=== PATIENT | male | born 1985 | race Two or more races ===

== ENCOUNTER 2017-06-07 14:03 | Inpatient (IN) | payer MEDICAID, OTHER ==
[~2017-06-07] VITALS: Ht 188 cm; Wt 115.2 kg
[~2017-06-07 14:03] MED LIST: GEMF600T3 OR; LISI10TA6 OR; OMEG120017 OR
[2017-06-07 15:48] LABS: White Blood Cell 6.7 10^3/uL (4.4-10.8)
[2017-06-07 15:49] LABS: Basophils # (auto) 0.1 uL; Basophils % (auto) 1.1 % (0.0-2.0); Eosinophils # (auto) 0.1 uL; Eosinophils % (auto) 1.1 % (0.0-7.0); Lymphocytes # (auto) 1.5 uL; Lymphocytes % (auto) 23.1 % (10.0-50.0); Monocytes # (auto) 0.3 uL; Neutrophils # (auto) 4.7 uL; Neutrophils % (auto) 70.7 % (37.0-80.0)
[2017-06-07 15:50] LABS: Red Blood Cells 5.46 10^6/uL (4.5-5.90)
[2017-06-07 15:51] LABS: Hematocrit 43.2 % (41.0-53.0); Hemoglobin 14.6 g/dL (13.5-17.5); Mean Corpuscular Hemoglobin 26.7 pg (28.0-32.0); Mean Corpuscular Hgb Conc. 33.7 g/dL (32.0-36.0); Mean Corpuscular Volume 79.2 fL (80.0-100.0); Platelet Count (auto) 238 10^3/uL (140-450); Red Cell Distribution Width 14.1 % (11.8-14.3)
[2017-06-07 16:37] LABS: Sodium 136 mmol/L (136-145)
[2017-06-07 16:38] LABS: Anion Gap 7 (5-15); Carbon Dioxide 25 mmol/L (21-32); Chloride 104 mmol/L (98-107); Glucose 145 mg/dL (74-106)
[2017-06-07 16:39] LABS: BUN/Creatinine Ratio 9.6; Blood Urea Nitrogen 11 mg/dL (7-18); GFR African American 95 mL/min; GFR Non-African American 79 mL/min
[2017-06-07 16:41] LABS: Alkaline Phosphatase 59 U/L (45-117)
[2017-06-07 16:42] LABS: Alanine Aminotransferase 31 U/L (16-61); Aspartate Aminotransferase 76 U/L (15-37)
[2017-06-07 16:43] LABS: Calcium 9.1 mg/dL (8.5-10.1)
[2017-06-07 16:44] LABS: Bilirubin, Total 0.4 mg/dL (0.2-1.0); Total Protein 7.1 g/dL (6.4-8.2)
[2017-06-07 16:45] LABS: Albumin 4.1 g/dL (3.4-5.0); Magnesium 2.6 mg/dL (1.6-2.6)
[2017-06-07 16:51] LABS: Potassium 5.6 mmol/L (3.5-5.1)
[2017-06-07] MEDS ORDERED: SODIUM CHLORIDE 0.9% 1,000 ML IV ONE (17:00)
[2017-06-07 19:44] LABS: HDL Cholesterol 13 mg/dL (40-59); Triglycerides 1812 mg/dL (< 150)
[2017-06-07 20:13] LABS: Urine Bacteria NONE SEEN /hpf (None Seen); Urine Blood Negative /uL (Negative); Urine Specific Gravity 1.025 (1.001-1.035); Urine WBC <1 /hpf (0 - 3)
[2017-06-08] MEDS ORDERED: ONDANSETRON HCL 4 MG/2 ML VIAL IV PRN (01:00)
[2017-06-08] MEDS ORDERED: MORPHINE SULFATE 8mg/ml INJ SDV IV PRN (01:00)
[2017-06-08] MEDS ORDERED: TEMAZEPAM 15 MG CAP PO PRN (01:00)
[2017-06-08] MEDS ORDERED: NITROGLYCERIN 0.4 MG SL TAB SL PRN (01:00)
[2017-06-08] MEDS ORDERED: ACETAMINOPHEN 325 MG TAB PO PRN (01:00)
[2017-06-08] MEDS ORDERED: Niacin SR 500mg TAB PO ONE (01:15)
[2017-06-08] MEDS: LISINOPRIL 10 MG TAB PO SCH (09:55)
[2017-06-08] MEDS: FISH OIL 1200 MG CAPSULE PO SCH ×2 (09:55→22:00)
[2017-06-08] MEDS ORDERED: METOPROLOL SUCCINATE XL 50 MG TAB PO ONE (10:00)
[2017-06-08] MEDS: ASPirin 81 mg TAB PO SCH (10:19)
[2017-06-08] MEDS: ENOXAPARIN SOD 40 MG/0.4 ML SYRINGE SC SCH (10:20)
[2017-06-08] MEDS: GEMFIBROZIL 600 MG TAB PO SCH ×2 (10:20→22:28)
[2017-06-08] MEDS: FAMOTIDINE 20 MG TAB PO SCH ×2 (10:20→22:29)
[2017-06-08 17:00] VITALS: BP 155/104
[2017-06-08 22:00] VITALS: BP 160/103
[2017-06-08] MEDS: Niacin SR 500mg TAB PO SCH (22:29)
[2017-06-08] MEDS ORDERED: cloNIDine HCL 0.1 MG TAB PO PRN (22:30)
[2017-06-08] MEDS: HYDROcodone-ACET 5/325MG TAB PO PRN (22:35)
[2017-06-09 05:00] VITALS: BP 144/86
[2017-06-09 07:28] LABS: Basophils # (auto) 0 uL; Basophils % (auto) 0.5 % (0.0-2.0); Eosinophils # (auto) 0.1 uL; Eosinophils % (auto) 1.7 % (0.0-7.0); Hemoglobin 15.3 g/dL (13.5-17.5); Lymphocytes # (auto) 1.3 uL; Lymphocytes % (auto) 24.8 % (10.0-50.0); Mean Corpuscular Hemoglobin 27.1 pg (28.0-32.0); Mean Corpuscular Hgb Conc. 34.1 g/dL (32.0-36.0); Mean Corpuscular Volume 79.5 fL (80.0-100.0); Monocytes # (auto) 0.4 uL; Monocytes % (auto) 6.9 % (0.0-12.0); Neutrophils # (auto) 3.4 uL; Neutrophils % (auto) 66.1 % (37.0-80.0); Nucleated Red Blood Cells % 0.2 %; Platelet Count (auto) 166 10^3/uL (140-450); Red Blood Cells 5.65 10^6/uL (4.5-5.90); White Blood Cell 5.2 10^3/uL (4.4-10.8)
[2017-06-09 07:45] LABS: BUN/Creatinine Ratio 10.9; Bilirubin, Total 1.7 mg/dL (0.2-1.0); Calcium 8.8 mg/dL (8.5-10.1); Magnesium 2.8 mg/dL (1.6-2.6); Potassium 4.2 mmol/L (3.5-5.1); Total Protein 7.6 g/dL (6.4-8.2)
[2017-06-09 08:55] VITALS: BP 128/89
[2017-06-09] MEDS: FAMOTIDINE 20 MG TAB PO SCH ×2 (09:55→21:22)
[2017-06-09] MEDS: GEMFIBROZIL 600 MG TAB PO SCH ×2 (09:55→21:20)
[2017-06-09] MEDS: ASPirin 81 mg TAB PO SCH (09:55)
[2017-06-09] MEDS: ENOXAPARIN SOD 40 MG/0.4 ML SYRINGE SC SCH (09:56)
[2017-06-09] MEDS: LISINOPRIL 10 MG TAB PO SCH (09:56)
[2017-06-09] MEDS: FISH OIL 1200 MG CAPSULE PO SCH ×2 (10:00→21:47)
[2017-06-09] MEDS: HYDROcodone-ACET 5/325MG TAB PO PRN ×2 (15:17→21:20)
[2017-06-09 16:30] VITALS: BP 143/96
[2017-06-09] MEDS: METOPROLOL TARTRATE 25 MG TAB PO SCH (21:21)
[2017-06-09] MEDS: Niacin SR 500mg TAB PO SCH (21:21)
[2017-06-09 23:06] VITALS: BP 151/106
[2017-06-10] MEDS: HYDROcodone-ACET 5/325MG TAB PO PRN ×3 (05:23→20:07)
[2017-06-10 05:58] VITALS: BP 116/78
[2017-06-10 06:53] LABS: BUN/Creatinine Ratio 17.6; Calcium 9.1 mg/dL (8.5-10.1)
[2017-06-10 07:01] LABS: Potassium 3.8 mmol/L (3.5-5.1)
[2017-06-10] MEDS: LISINOPRIL 10 MG TAB PO SCH (07:41)
[2017-06-10] MEDS: FAMOTIDINE 20 MG TAB PO SCH ×2 (07:41→22:00)
[2017-06-10] MEDS: GEMFIBROZIL 600 MG TAB PO SCH ×2 (07:41→22:00)
[2017-06-10] MEDS: ASPirin 81 mg TAB PO SCH (07:41)
[2017-06-10] MEDS: ENOXAPARIN SOD 40 MG/0.4 ML SYRINGE SC SCH (07:42)
[2017-06-10 09:00] VITALS: BP 160/90
[2017-06-10] MEDS: METOPROLOL TARTRATE 25 MG TAB PO SCH (09:29)
[2017-06-10] MEDS: FISH OIL 1200 MG CAPSULE PO SCH ×2 (09:30→22:00)
[2017-06-10] MEDS ORDERED: METOPROLOL TARTRATE 25 MG TAB PO ONE (10:15)
[2017-06-10 13:00] VITALS: BP 129/91
[2017-06-10 16:19] VITALS: BP 142/83
[2017-06-10 21:30] VITALS: BP 138/83
[2017-06-10] MEDS: Niacin SR 500mg TAB PO SCH (22:00)
[2017-06-10] MEDS: METOPROLOL TARTRATE 50 MG TAB PO SCH (22:00)
[2017-06-10] MEDS ORDERED: METOPROLOL TARTRATE 25 MG TAB PO SCH (22:00)
[2017-06-11 04:58] VITALS: BP 113/77
[2017-06-11] MEDS: HYDROcodone-ACET 5/325MG TAB PO PRN (07:31)
[2017-06-11 08:24] VITALS: BP 121/67
[2017-06-11] MEDS: METOPROLOL TARTRATE 50 MG TAB PO SCH (09:16)
[2017-06-11] MEDS: ASPirin 81 mg TAB PO SCH (09:16)
[2017-06-11] MEDS: GEMFIBROZIL 600 MG TAB PO SCH (09:16)
[2017-06-11] MEDS: LISINOPRIL 10 MG TAB PO SCH (09:17)
[2017-06-11] MEDS: FAMOTIDINE 20 MG TAB PO SCH (09:17)
[2017-06-11] MEDS: FISH OIL 1200 MG CAPSULE PO SCH (09:17)
[2017-06-11] MEDS: ENOXAPARIN SOD 40 MG/0.4 ML SYRINGE SC SCH (09:17)
== END 2017-06-11 11:27 | disposition home or self-care (01) | DRG 199 ==
LOC: ER 14:08 → TELE 14:09 → TELE-EAST 06-08 15:28
PROVIDERS: ADMIT Nurse Practitioner; ATTEND Internal Medicine
DX: I16.0 Hypertensive urgency (principal); E87.5 Hyperkalemia; I47.1 Supraventricular tachycardia; I10 Essential (primary) hypertension; I49.3 Ventricular premature depolarization; E78.5 Hyperlipidemia, unspecified; F12.90 Cannabis use, unspecified, uncomplicated; F17.210 Nicotine dependence, cigarettes, uncomplicated; F41.9 Anxiety disorder, unspecified; E78.1 Pure hyperglyceridemia; Z82.49 Family history of ischemic heart disease and other diseases of the circulatory system; Z83.3 Family history of diabetes mellitus; Z90.49 Acquired absence of other specified parts of digestive tract; Z91.19 Patient's noncompliance with other medical treatment and regimen
CPT/HCPCS: 36415; 71046; 74176; 80048; 80053; 80061; 81001; 83735; 84132; 84443; 84484; 85025; 93005; 93306; 94761; 96360; 96372

== ENCOUNTER 2018-04-17 15:47 | Emergency (ER) | payer MEDICAID ==
[~2018-04-17] VITALS: Ht 188 cm; Wt 108.9 kg
[~2018-04-17 15:47] MED LIST changes: +FENO160T8 PO; -GEMF600T3 OR; -LISI10TA6 OR; +METO-158 PO; +NIAC500C3 OR
[2018-04-17] MEDS ORDERED: SODIUM CHLORIDE 0.9% 1,000 ML IVB ONE (16:13)
[2018-04-17] MEDS ORDERED: ADENOSINE 6 MG/2 ML INJ IV ONE (16:15)
[2018-04-17 16:30] VITALS: BP 164/100
[2018-04-17 16:30] LABS: Basophils # (auto) 0.1 uL; Eosinophils # (auto) 0.1 uL; Hemoglobin 17.1 g/dL (13.5-17.5); Lymphocytes # (auto) 2.2 uL; Lymphocytes % (auto) 26.1 % (10.0-50.0); Monocytes # (auto) 0.4 uL
[2018-04-17 16:31] LABS: Basophils % (auto) 0.9 % (0.0-2.0); Eosinophils % (auto) 1.3 % (0.0-7.0); Hematocrit 46.4 % (41.0-53.0); Mean Corpuscular Hgb Conc. 36.8 g/dL (32.0-36.0); Mean Corpuscular Volume 78.8 fL (80.0-100.0); Monocytes % (auto) 5.2 % (0.0-12.0); Neutrophils # (auto) 5.6 uL; Neutrophils % (auto) 66.5 % (37.0-80.0); Nucleated Red Blood Cells % 0.7 %; Platelet Count (auto) 224 10^3/uL (140-450); Red Blood Cells 5.89 10^6/uL (4.5-5.90); Red Cell Distribution Width 14.9 % (11.8-14.3); White Blood Cell 8.4 10^3/uL (4.4-10.8)
== END 2018-04-17 19:14 | disposition home or self-care (01) ==
LOC: ER 16:02
DX: I47.1 Supraventricular tachycardia (principal); E78.5 Hyperlipidemia, unspecified; I10 Essential (primary) hypertension; F12.10 Cannabis abuse, uncomplicated; Z90.49 Acquired absence of other specified parts of digestive tract; Z90.89 Acquired absence of other organs
CPT/HCPCS: 36415; 71045; 85025; 93005; 94761; 96361; 96374; 99284; J0153

== ENCOUNTER 2018-06-23 04:12 | Emergency (ER) | payer MEDICAID ==
[~2018-06-23] VITALS: Ht 188 cm; Wt 113.4 kg
[2018-06-23] MEDS ORDERED: SODIUM CHLORIDE 0.9% 1,000 ML IV ONE (04:34)
[2018-06-23] MEDS ORDERED: ONDANSETRON HCL 4 MG/2 ML VIAL IV ONE (04:45)
[2018-06-23] MEDS ORDERED: PROMETHAZINE W/CODEINE 5 ML ORAL SYRUP PO ONE (04:45)
[2018-06-23] MEDS ORDERED: KETOROLAC TROMETH 30 MG/ML 1ML VIAL IV ONE (04:45)
[2018-06-23 05:00] LABS: Basophils # (auto) 0 uL; Eosinophils # (auto) 0.1 uL; Hemoglobin 16.4 g/dL (13.5-17.5); Lymphocytes # (auto) 0.9 uL; Monocytes # (auto) 0.3 uL; White Blood Cell 5.3 10^3/uL (4.4-10.8)
[2018-06-23 05:04] LABS: Basophils % (auto) 0.5 % (0.0-2.0); Eosinophils % (auto) 1.3 % (0.0-7.0); Hematocrit 44.2 % (41.0-53.0); Lymphocytes % (auto) 16.5 % (10.0-50.0); Mean Corpuscular Hemoglobin 28.7 pg (28.0-32.0); Mean Corpuscular Volume 77.5 fL (80.0-100.0); Monocytes % (auto) 5.7 % (0.0-12.0); Nucleated Red Blood Cells % 0.8 %; Platelet Count (auto) 178 10^3/uL (140-450); Red Blood Cells 5.71 10^6/uL (4.5-5.90); Red Cell Distribution Width 13.7 % (11.8-14.3)
[2018-06-23 05:11] VITALS: BP 151/88
[2018-06-23 05:33] LABS: Albumin 4.1 g/dL (3.4-5.0); Potassium 4.1 mmol/L (3.5-5.1)
[2018-06-23 05:38] LABS: Bilirubin, Total 1.3 mg/dL (0.2-1.0)
[2018-06-23 06:09] LABS: Calcium 7.8 mg/dL (8.5-10.1); Total Protein 7.6 g/dL (6.4-8.2)
[2018-06-23 06:46] LABS: BUN/Creatinine Ratio 14.5
== END 2018-06-23 06:15 | disposition home or self-care (01) ==
LOC: ER 04:12
DX: J40 Bronchitis, not specified as acute or chronic (principal); I10 Essential (primary) hypertension; E78.5 Hyperlipidemia, unspecified; Z90.49 Acquired absence of other specified parts of digestive tract
CPT/HCPCS: 36415; 71045; 80053; 85025; 93005; 96361; 96374; 96375; 99284; J1885; J2405; J7030

== ENCOUNTER 2019-08-14 15:57 | Emergency (ER) | payer MEDICAID ==
[~2019-08-14] VITALS: Ht 188 cm; Wt 117.9 kg
[~2019-08-14 15:57] MED LIST changes: +ATOR1TAB PO; +HYDR50TA15 PO; +LISI-646 PO; +MAGN400T40 PO; -METO-158 PO; +METO-159 PO; -NIAC500C3 OR; -OMEG120017 OR
[2019-08-14] MEDS ORDERED: dilTIAZem 25 MG/5 ML VIAL IV ONE ×2 (16:12→16:15)
[2019-08-14 16:21] LABS: Basophils # (auto) 0.1 10 ^3/uL (0-0.2); Eosinophils # (auto) 0.1 10 ^3/uL (0-0.8); Red Cell Distribution Width 14.7 % (11.8-14.3)
[2019-08-14 16:23] LABS: Basophils % (auto) 0.7 % (0.0-2.0); Eosinophils % (auto) 0.8 % (0.0-7.0); Hematocrit 50.3 % (41.0-53.0); Lymphocytes % (auto) 21.7 % (10.0-50.0); Mean Corpuscular Hemoglobin 27.1 pg (28.0-32.0); Mean Corpuscular Hgb Conc. 33.7 g/dL (32.0-36.0); Mean Corpuscular Volume 80.3 fL (80.0-100.0); Monocytes # (auto) 0.8 10 ^3/uL (0-1.3); Monocytes % (auto) 6.1 % (0.0-12.0); Neutrophils # (auto) 9.7 10 ^3/uL (1.6-8.6); Neutrophils % (auto) 70.7 % (37.0-80.0); Nucleated Red Blood Cells % 0.2 %; Platelet Count (auto) 280 10^3/uL (140-450); Red Blood Cells 6.27 10^6/uL (4.5-5.90); White Blood Cell 13.7 10^3/uL (4.4-10.8)
[2019-08-14] MEDS ORDERED: SODIUM CHLORIDE 0.9% 1,000 ML IV ONE (16:30)
[2019-08-14 16:49] LABS: Alanine Aminotransferase 47 U/L (16-61); Albumin 4.1 g/dL (3.4-5.0); Anion Gap 9 (5-15); Aspartate Aminotransferase 29 U/L (15-37); BUN/Creatinine Ratio 11.7; Blood Urea Nitrogen 15 mg/dL (7-18); Calcium 8.7 mg/dL (8.5-10.1); Carbon Dioxide 22 mmol/L (21-32); Chloride 109 mmol/L (98-107); GFR African American 83 mL/min; GFR Non-African American 69 mL/min; Glucose 137 mg/dL (74-106); Magnesium 2.4 mg/dL (1.6-2.6); Potassium 3.8 mmol/L (3.5-5.1); Sodium 140 mmol/L (136-145)
[2019-08-14 16:54] LABS: Alkaline Phosphatase 55 U/L (45-117); Bilirubin, Total 1.1 mg/dL (0.2-1.0); Total Protein 7.9 g/dL (6.4-8.2)
[2019-08-14 18:00] VITALS: BP 146/99
[2019-08-29] MEDS ORDERED: dilTIAZem 25 MG/5 ML VIAL IV ONE (03:45)
== END 2019-08-14 18:51 | disposition home or self-care (01) ==
LOC: ER 15:57
DX: I47.1 Supraventricular tachycardia (principal); I10 Essential (primary) hypertension; F17.200 Nicotine dependence, unspecified, uncomplicated
CPT/HCPCS: 36415; 71045; 80053; 83735; 84484; 85025; 93005; 96374

== ENCOUNTER 2019-08-29 02:58 | Inpatient (IN) | payer MEDICAID ==
[~2019-08-29] VITALS: Ht 188 cm; Wt 116.6 kg
[2019-08-29 05:23] LABS: Basophils # (auto) 0 10 ^3/uL (0-0.2); Basophils % (auto) 0.3 % (0.0-2.0); Eosinophils # (auto) 0 10 ^3/uL (0-0.8); Hematocrit 45.8 % (41.0-53.0); Hemoglobin 15.6 g/dL (13.5-17.5); Lymphocytes # (auto) 0.3 10 ^3/uL (0.4-5.4); Lymphocytes % (auto) 3.6 % (10.0-50.0); Mean Corpuscular Hemoglobin 27.1 pg (28.0-32.0); Mean Corpuscular Hgb Conc. 34.1 g/dL (32.0-36.0); Mean Corpuscular Volume 79.6 fL (80.0-100.0); Monocytes # (auto) 0.5 10 ^3/uL (0-1.3); Monocytes % (auto) 5.7 % (0.0-12.0); Neutrophils # (auto) 7.6 10 ^3/uL (1.6-8.6); Neutrophils % (auto) 90.4 % (37.0-80.0); Nucleated Red Blood Cells % 0.1 %; Platelet Count (auto) 129 10^3/uL (140-450); Red Blood Cells 5.75 10^6/uL (4.5-5.90); Red Cell Distribution Width 14.6 % (11.8-14.3); White Blood Cell 8.4 10^3/uL (4.4-10.8)
[2019-08-29] MEDS ORDERED: DOCUSATE SOD 100 MG CAP PO PRN (05:30)
[2019-08-29] MEDS ORDERED: dilTIAZem 25 MG/5 ML VIAL IV ONE (05:30)
[2019-08-29] MEDS ORDERED: METOPROLOL TARTRATE 1MG/1ML-5ML VIAL IV SCH (05:30)
[2019-08-29] MEDS ORDERED: NITROGLYCERIN 0.4 MG SL TAB SL PRN (05:30)
[2019-08-29] MEDS ORDERED: MORPHINE SULF INJ 2 MG/ML SYRINGE 1ML IV PRN ×2 (05:30)
[2019-08-29] MEDS ORDERED: ONDANSETRON HCL 4 MG/2 ML VIAL IV PRN (05:30)
[2019-08-29 05:41] LABS: Albumin 3.6 g/dL (3.4-5.0); Anion Gap 10 (5-15); Blood Urea Nitrogen 17 mg/dL (7-18); Calcium 8.4 mg/dL (8.5-10.1); Carbon Dioxide 23 mmol/L (21-32); Chloride 98 mmol/L (98-107); Glucose 150 mg/dL (74-106); INR 1.07 (0.9-1.15); Partial Thromboplastin Time 32.8 sec (23.64-32.05); Sodium 131 mmol/L (136-145)
[2019-08-29 05:44] LABS: Potassium 2.8 mmol/L (3.5-5.1)
[2019-08-29 05:47] LABS: Alanine Aminotransferase 47 U/L (16-61); Alkaline Phosphatase 57 U/L (45-117); Aspartate Aminotransferase 28 U/L (15-37); Bilirubin, Total 1.5 mg/dL (0.2-1.0); GFR African American 67 mL/min; GFR Non-African American 56 mL/min; Total Protein 7.7 g/dL (6.4-8.2)
[2019-08-29] MEDS ORDERED: POTASSIUM CHL 20 Meq TABLET PO ONE (06:00)
[2019-08-29] MEDS: hydrALAZINE HCL 25 MG TAB PO SCH ×3 (06:00→22:22)
[2019-08-29] MEDS ORDERED: LORazepam 2MG/ML-1ML VIAL IV ONE (06:00)
[2019-08-29] MEDS ORDERED: ALBUTEROL SULF HFA 90MCG INH 200DOSE IN SCH (06:00)
[2019-08-29] MEDS: POTASSIUM CHL 20MEQ/100ML 100 ML IV SCH ×2 (06:50→10:33)
[2019-08-29] MEDS: SODIUM CHLORIDE 0.9% 1,000 ML IV SCH ×2 (06:55→10:33)
[2019-08-29 09:00] VITALS: BP 159/86
--- NOTE | 2019-08-29 09:00 | NUR ---
RECEIVED PATIENT FROM ER VIA WHEELCHAIR. PATIENT ORIENTED TO ROOM. BED IN LOCKED AND LOWEST POSITION, CALL LIGHT BEDSIDE AND 2X SIDE RAILS UP. PATIENT VS: 159/86, 108, 95% 2L NC, 16, 99.5. NO COMPLAINTS OF PAIN OR DISCOMFORT AT THIS TIME. WILL CONTINUE TO MONITOR Q1H AND PRN.
[2019-08-29] MEDS ORDERED: METOPROLOL TARTRATE 50 MG TAB PO SCH (10:00)
[2019-08-29] MEDS: Fenofibrate 160 MG TAB PO SCH (10:00)
--- NOTE | 2019-08-29 10:00 | NUR ---
IV LEAKING/REMOVED IV DC'd with clean sterile technique, catheter fully intact. Pressure dressing applied to site. Patient tolerated well.
--- NOTE | 2019-08-29 10:30 | NUR ---
IV insertion IV access obtained, via clean sterile technique by inserting 22 gauge catheter to the left hand. IV secured properly. No trauma to site. Patient tolerated well.
[2019-08-29] MEDS: ASCORBIC ACID 1,000 MG TAB PO SCH (10:31)
[2019-08-29] MEDS: MAGNESIUM OXIDE 400 MG TAB PO SCH (10:31)
[2019-08-29] MEDS: ATORVASTATIN 20 MG TAB PO SCH (10:31)
[2019-08-29] MEDS: LISINOPRIL 20 MG TAB PO SCH (10:32)
[2019-08-29] MEDS: DOXYCYCLINE 100 MG TAB/CAP PO SCH ×2 (10:37→22:22)
[2019-08-29] MEDS: ENOXAPARIN SOD 40 MG/0.4 ML SYRINGE SC SCH (10:37)
[2019-08-29] MEDS: CHOLECALCIFEROL (VITD3) 1,000UNIT=25mCg TAB PO SCH (10:37)
[2019-08-29] MEDS: ZINC SULFATE 220mg CAP or TAB PO SCH (10:38)
[2019-08-29] MEDS: ACETAMINOPHEN 325 MG TAB PO PRN (11:00)
[2019-08-29] MEDS: ALBUTEROL SULF HFA 90MCG INH 200DOSE IN SCH ×2 (11:15→22:00)
--- NOTE | 2019-08-29 11:30 | NUR ---
PHARMACY CLARIFICATION PHARMACY CALLED FOR CLARIFICATION OF METOPROLOL ORDER PLACED BY DR BRUSH. PATIENT TAKES SUCCINATE NOT TARTRATE. PAGED DR BRUSH FOR CLARIFICATION OF ORDER.
[2019-08-29 13:00] VITALS: BP 166/102
[2019-08-29] MEDS ORDERED: METO200T42 PO (13:09)
[2019-08-29] MEDS: METOPROLOL TARTRATE 50 MG TAB PO SCH ×2 (13:10→22:22)
--- NOTE | 2019-08-29 13:30 | NUR ---
MED ORDER RECEIVED ORDER FROM DR BRUSH FOR METOPROLOL. ORDER PLACED RECEIVED.
--- NOTE | 2019-08-29 14:00 | NUR ---
DR CARTER ON UNIT. ORDERS RECEIVED AND CARRIED OUT
--- NOTE | 2019-08-29 14:30 | NUR ---
COVID AND MRSA SWAB COMPLETE AND WALKED TO LAB
[2019-08-29] MEDS: HYDROcodone-ACET 5/325MG TAB PO PRN ×2 (14:43→19:31)
[2019-08-29] MEDS: guaiFENesin 200 MG/10 ML UD PO PRN ×2 (15:30→19:31)
[2019-08-29] MEDS: LORazepam 0.5 MG TAB PO PRN (15:39)
[2019-08-29 17:00] VITALS: BP 158/95
[2019-08-29] MEDS: ACETAMINOPHEN 500 MG TAB PO PRN (17:24)
--- NOTE | 2019-08-29 17:25 | NUR ---
ELEVATED TEMP PATIENTS TEMP 101.4. COOLING MEASURES INITIATED WITH ICE PACKS BEING APPLIED AND REMOVAL OF BLANKET, MEDICATION ADMINISTERED. WILL CONTINUE TO MONITOR
--- NOTE | 2019-08-29 18:24 | NUR ---
REASSESS TEMP REASSESSED PATIENTS TEMP. 103.1. APPLIED MORE ICE PACKS, AND PAGED DR CARTER FOR FURTHER ORDERS. WILL CONTINUE TO MONITOR
--- NOTE | 2019-08-29 18:40 | NUR ---
INFORMED DR CARTER OF PATIENTS TEMP OF 103.1. ORDERS RECEIVED AND CARRIED OUT.
[2019-08-29] MEDS ORDERED: cefTRIAXone 1GM/50ML D5W 50 ML IV ONE ×2 (18:45→18:48)
[2019-08-29] MEDS ORDERED: VANCOMYCIN PER PHARMACY 0 MG IV SCH (18:45)
[2019-08-29] MEDS ORDERED: IBUPROFEN 600 MG TAB PO PRN (18:45)
[2019-08-29] MEDS: VANCOMYCIN 1GM/250ML 250 ML IV SCH (20:10)
--- NOTE | 2019-08-29 21:00 | NUR ---
IV removal IV DC'd with clean sterile technique, catheter fully intact. Pressure dressing applied to site. Patient tolerated well. IV insertion IV access obtained, via clean sterile technique by inserting 22 gauge catheter at LEFT HAND after 2 attempt(s). IV secured properly. No trauma to site. Patient tolerated well. NOTE: []
[2019-08-29 22:00] VITALS: BP 152/78
[2019-08-29] MEDS: POTASSIUM EFFERVESENT TAB 25 MEQ GT SCH (22:21)
[2019-08-30] MEDS: HYDROcodone-ACET 5/325MG TAB PO PRN ×2 (02:01→09:45)
[2019-08-30] MEDS: guaiFENesin 200 MG/10 ML UD PO PRN ×3 (02:01→22:30)
[2019-08-30] MEDS ORDERED: VANCOMYCIN 1GM/250ML 250 ML IV ONE (03:56)
[2019-08-30] MEDS: VANCOMYCIN 1GM/250ML 250 ML IV SCH ×3 (03:58→21:05)
[2019-08-30 04:39] VITALS: BP 141/78
[2019-08-30] MEDS: ACETAMINOPHEN 500 MG TAB PO PRN (04:44)
--- NOTE | 2019-08-30 04:44 | NUR ---
PTS TEMP 102.6. COOLING MEASURES APPLIED. MEDICATION PROVIDED. WILL CONTINUE TO MONITOR.
[2019-08-30 05:00] VITALS: BP 140/79
[2019-08-30] MEDS: hydrALAZINE HCL 25 MG TAB PO SCH ×3 (06:08→22:00)
--- NOTE | 2019-08-30 07:40 | NUR ---
Opening shift note Assumed care of patient from NOC RN. Patient is AOx4, no s/s of distress noted. Bed in lowest locked position, call light is within reach, and side rails are up x2. Updated patient on plan of care and patient verbalized understanding. Will continue to monitor q1hr and PRN.
[2019-08-30 08:31] LABS: Basophils # (auto) 0 10 ^3/uL (0-0.2); Eosinophils # (auto) 0 10 ^3/uL (0-0.8); Lymphocytes # (auto) 0.8 10 ^3/uL (0.4-5.4); Monocytes # (auto) 0.4 10 ^3/uL (0-1.3); Red Blood Cells 5.71 10^6/uL (4.5-5.90)
[2019-08-30 08:37] LABS: Basophils % (auto) 0.2 % (0.0-2.0); Hematocrit 45.9 % (41.0-53.0); Hemoglobin 15.3 g/dL (13.5-17.5); Lymphocytes % (auto) 8.1 % (10.0-50.0); Mean Corpuscular Hemoglobin 26.7 pg (28.0-32.0); Mean Corpuscular Hgb Conc. 33.2 g/dL (32.0-36.0); Mean Corpuscular Volume 80.4 fL (80.0-100.0); Monocytes % (auto) 4.6 % (0.0-12.0); Neutrophils # (auto) 8.2 10 ^3/uL (1.6-8.6); Neutrophils % (auto) 87.1 % (37.0-80.0); Nucleated Red Blood Cells % 0.1 %; Platelet Count (auto) 118 10^3/uL (140-450); Red Cell Distribution Width 14.9 % (11.8-14.3); White Blood Cell 9.4 10^3/uL (4.4-10.8)
[2019-08-30 08:54] LABS: Albumin 3.3 g/dL (3.4-5.0); BUN/Creatinine Ratio 12.8; Calcium 8.5 mg/dL (8.5-10.1)
[2019-08-30 09:00] VITALS: BP 138/80
[2019-08-30 09:04] LABS: Bilirubin, Total 1.3 mg/dL (0.2-1.0); Total Protein 7.4 g/dL (6.4-8.2)
[2019-08-30] MEDS: cefTRIAXone 1GM/50ML D5W 50 ML IV SCH (09:09)
[2019-08-30] MEDS: DexAMETHasone SOD PHOS 4 MG/1ML SDV INJ IV SCH (09:13)
[2019-08-30] MEDS: ENOXAPARIN SOD 40 MG/0.4 ML SYRINGE SC SCH (09:14)
[2019-08-30] MEDS: POTASSIUM EFFERVESENT TAB 25 MEQ GT SCH ×2 (09:14→22:28)
[2019-08-30] MEDS: DOXYCYCLINE 100 MG TAB/CAP PO SCH ×2 (09:14→22:29)
[2019-08-30] MEDS: ZINC SULFATE 220mg CAP or TAB PO SCH (09:14)
[2019-08-30] MEDS: CHOLECALCIFEROL (VITD3) 1,000UNIT=25mCg TAB PO SCH (09:14)
[2019-08-30] MEDS: MAGNESIUM OXIDE 400 MG TAB PO SCH (09:14)
[2019-08-30] MEDS: LISINOPRIL 20 MG TAB PO SCH (09:15)
[2019-08-30] MEDS: ASCORBIC ACID 1,000 MG TAB PO SCH (09:15)
[2019-08-30] MEDS: METOPROLOL SUCCINATE XL 50 MG TAB PO SCH (09:16)
[2019-08-30] MEDS: Fenofibrate 160 MG TAB PO SCH (09:17)
[2019-08-30] MEDS: ALBUTEROL SULF HFA 90MCG INH 200DOSE IN SCH ×2 (09:17→22:00)
[2019-08-30] MEDS: METOPROLOL TARTRATE 50 MG TAB PO SCH ×2 (09:20→22:29)
[2019-08-30] MEDS: ATORVASTATIN 20 MG TAB PO SCH (09:45)
[2019-08-30 13:00] VITALS: BP 109/84
[2019-08-30 17:00] VITALS: BP 126/71
--- NOTE | 2019-08-30 19:17 | NUR ---
End of shift note Endorsed care to NOC RN Kyree. No signs and symptoms of distress noted.
[2019-08-30 22:00] VITALS: BP 142/87
[2019-08-30] MEDS: ACETAMINOPHEN 325 MG TAB PO PRN (22:29)
[2019-08-31] MEDS: LORazepam 0.5 MG TAB PO PRN (00:04)
[2019-08-31] MEDS: VANCOMYCIN 1GM/250ML 250 ML IV SCH ×3 (03:09→16:00)
[2019-08-31] MEDS: guaiFENesin 200 MG/10 ML UD PO PRN (03:09)
[2019-08-31 05:00] VITALS: BP 111/83
[2019-08-31] MEDS: hydrALAZINE HCL 25 MG TAB PO SCH ×2 (05:40→14:08)
[2019-08-31 07:12] LABS: Anion Gap 4 (5-15); Blood Urea Nitrogen 18 mg/dL (7-18); Calcium 8.9 mg/dL (8.5-10.1); Carbon Dioxide 29 mmol/L (21-32); Chloride 102 mmol/L (98-107); Glucose 110 mg/dL (74-106); Sodium 135 mmol/L (136-145)
--- NOTE | 2019-08-31 07:20 | NUR ---
Opening shift note Assumed care of patient from NOC RN Kyree. Patient is AOx4, no s/s of distress noted. Bed in lowest locked position, call light is within reach, and side rails are up x2. Updated patient on plan of care and patient verbalized understanding. Will continue to monitor q1hr and PRN.
[2019-08-31 07:21] LABS: BUN/Creatinine Ratio 16.7; CRP High Sensitivity 9.45 mg/dL (< 0.3); GFR African American 101 mL/min; GFR Non-African American 84 mL/min
[2019-08-31] MEDS: ALBUTEROL SULF HFA 90MCG INH 200DOSE IN SCH ×2 (08:10→14:08)
[2019-08-31] MEDS: cefTRIAXone 1GM/50ML D5W 50 ML IV SCH (08:56)
[2019-08-31 09:00] VITALS: BP 138/84
[2019-08-31] MEDS: ZINC SULFATE 220mg CAP or TAB PO SCH (09:00)
[2019-08-31] MEDS: ATORVASTATIN 20 MG TAB PO SCH (09:00)
[2019-08-31] MEDS: METOPROLOL SUCCINATE XL 50 MG TAB PO SCH (09:01)
[2019-08-31] MEDS: ASCORBIC ACID 1,000 MG TAB PO SCH (09:03)
[2019-08-31] MEDS: DOXYCYCLINE 100 MG TAB/CAP PO SCH (09:03)
[2019-08-31] MEDS: CHOLECALCIFEROL (VITD3) 1,000UNIT=25mCg TAB PO SCH (09:03)
[2019-08-31] MEDS: MAGNESIUM OXIDE 400 MG TAB PO SCH (09:04)
[2019-08-31] MEDS: ENOXAPARIN SOD 40 MG/0.4 ML SYRINGE SC SCH (09:04)
[2019-08-31] MEDS: POTASSIUM EFFERVESENT TAB 25 MEQ GT SCH (09:04)
[2019-08-31] MEDS: DexAMETHasone SOD PHOS 4 MG/1ML SDV INJ IV SCH (09:04)
[2019-08-31] MEDS: METOPROLOL TARTRATE 50 MG TAB PO SCH (09:05)
[2019-08-31] MEDS: LISINOPRIL 20 MG TAB PO SCH (09:26)
[2019-08-31] MEDS: Fenofibrate 160 MG TAB PO SCH (09:27)
[2019-08-31] MEDS ORDERED: FAMO20TA10 PO (10:59)
[2019-08-31] MEDS ORDERED: ALBU108A5 IN (10:59)
[2019-08-31] MEDS ORDERED: AZIT500T66 PO (10:59)
[2019-08-31] MEDS ORDERED: DEX4T PO (10:59)
[2019-08-31 13:00] VITALS: BP 124/73
--- NOTE | 2019-08-31 15:30 | NUR ---
Physician rounding Dr. Estes at bedside, updated him on patient status. New orders received, will follow through and will continue care.
[2019-08-31] MEDS ORDERED: GUAI-41 PO (15:50)
[2019-08-31 17:00] VITALS: BP 115/63
--- NOTE | 2019-08-31 17:04 | NUR ---
Assessment Patient is a 33- year-old male. Assessment was completed with patient Randa Ph:). Per Randa prior to admission patient lived home with her and function independently. Per Randa patient can care for his own ADLs. Per Randa patient does not have any medical equipment now. Per Randa patient will return to his prior living arrangements post discharge and she will transport patient home. Patient PCP is Rehan. Advise Randa there is a social service consult for home health safety evaluation. Informed Randa clinical information will [facility]. Advised Randa for patient to follow up with his primary doctor. Informed Randa she has the right to participate in all discharge planning. Randa verbalized understanding and agreed to discharge plan. Faxed clinical information to [facility] and [facility]. Per Huong with [facility] patient has been accepted and will be seen within 24-48 hrs upon d/c. Obtain authorization from [facility] [id number]. Addendum: 08/31/19 at 1708 by SATURNINO YUEN Amended: Links added.
--- NOTE | 2019-08-31 19:30 | NUR ---
Opening Shift Note Received report from Fabiana AMADOR. Assumed care of patient, awake and alert. No S/S of distress/SOB or pain. Instructed on POC and to call for assist PRN, will continue to monitor for changes Q1hr and PRN.
--- NOTE | 2019-08-31 19:38 | NUR ---
end of shift note Endorsed care and D/C to noc RN Wanda. No s/s of distress noted.
[2019-08-31 19:48] VITALS: BP 131/76
--- NOTE | 2019-08-31 21:00 | NUR ---
Discharge instructions given as ordered. Encourage to follow up with PMD as instructed. All questions and concerns addressed. Patient verbalized understanding. Medication reconciliation form completed and copy given to patient. Home medications held in Pharmacy returned to patient, and needed vaccines given. IV removed with catheter intact, pressure dressing applied. Telemetry unit returned to ICU. Patient taken to vehicle via wheelchair with all personal belongings, accompanied by staf. No distress noted at time of departure.
== END 2019-08-31 21:00 | disposition home health service (06) | DRG 137 ==
LOC: ER 02:58 → TELE 02:59 → TELE-EAST 08:53
PROVIDERS: ADMIT Hospitalist; ATTEND Hospitalist
DX: U07.1 COVID-19 (principal); J96.01 Acute respiratory failure with hypoxia; I47.1 Supraventricular tachycardia; E87.6 Hypokalemia; K57.10 Diverticulosis of small intestine without perforation or abscess without bleeding; J98.11 Atelectasis; J12.89 Other viral pneumonia; E78.5 Hyperlipidemia, unspecified; F17.200 Nicotine dependence, unspecified, uncomplicated; F41.9 Anxiety disorder, unspecified; I10 Essential (primary) hypertension; K57.30 Diverticulosis of large intestine without perforation or abscess without bleeding; Z82.49 Family history of ischemic heart disease and other diseases of the circulatory system; Z83.3 Family history of diabetes mellitus; Z86.19 Personal history of other infectious and parasitic diseases; Z90.49 Acquired absence of other specified parts of digestive tract
CPT/HCPCS: 36415; 36600; 71045; 80048; 80053; 80202; 82728; 82805; 83735; 84484; 85025; 85379; 85610; 85730; 86141; 87040; 87081; 93005; 94640; G0378; J0696; J1100; J2405; J3480

== ENCOUNTER 2021-02-20 18:17 | Emergency (ER) | payer MEDICAID ==
[~2021-02-20] VITALS: Ht 188 cm; Wt 113.4 kg
[~2021-02-20 18:17] MED LIST changes: +ALBU108A5 IN; +ATOR-47 PO; -ATOR1TAB PO; +AZIT500T66 PO; +DEX4T PO; +FAMO20TA10 PO; +GUAI-41 PO; -LISI-646 PO; +LISI20TA28 PO; -METO-159 PO; +METO200T42 PO
[2021-02-20 23:36] VITALS: BP 145/85
== END 2021-02-21 00:15 | disposition home or self-care (01) ==
LOC: ER 18:18
DX: J06.9 Acute upper respiratory infection, unspecified (principal); M79.10 Myalgia, unspecified site; R51.9 Headache, unspecified; E78.5 Hyperlipidemia, unspecified; I10 Essential (primary) hypertension; F12.10 Cannabis abuse, uncomplicated; Z90.49 Acquired absence of other specified parts of digestive tract; Z90.89 Acquired absence of other organs; Z20.822 Contact with and (suspected) exposure to COVID-19
CPT/HCPCS: 36415; 71045; 87426

== ENCOUNTER 2022-11-22 12:25 | Inpatient (IN) | payer MEDICAID ==
[~2022-11-22] VITALS: Ht 188 cm; Wt 124.4 kg
[~2022-11-22 12:25] MED LIST changes: +FENO160T PO; -FENO160T8 PO; +HYDR-4297 PO; -HYDR50TA15 PO; -LISI20TA28 PO; +LISI20TA56 PO
[2022-11-22] MEDS ORDERED: ONDANSETRON HCL 4 MG/2 ML VIAL IV ONE (13:00)
[2022-11-22] MEDS ORDERED: MORPHINE SULFATE 4 MG/ML SYR/VIAL IV ONE (13:00)
[2022-11-22] MEDS ORDERED: PANTOPRAZOLE 40 MG/10 ML VIAL INJ IV ONE (13:00)
[2022-11-22] MEDS ORDERED: SODIUM CHLORIDE 0.9% 1,000 ML IVB ONE (13:00)
[2022-11-22 13:58] LABS: Urine Bacteria NONE SEEN /hpf (None Seen); Urine Blood Negative /uL (Negative); Urine Clarity Clear (Clear); Urine Color Colorless (Yellow); Urine Protein, UAD Negative (Negative); Urine Specific Gravity 1.015 (1.001-1.035); Urine Urobilinogen Normal (Negative); Urine WBC <1 /hpf (0 - 3)
[2022-11-22 14:24] LABS: Monocytes # (auto) 0.8 10 ^3/uL (0-1.3)
[2022-11-22 14:26] LABS: Basophils # (auto) 0.1 10 ^3/uL (0-0.2); Basophils % (auto) 0.9 % (0.0-2.0); Eosinophils # (auto) 0 10 ^3/uL (0-0.8); Eosinophils % (auto) 0.3 % (0.0-7.0); Hematocrit 46.7 % (41.0-53.0); Lymphocytes # (auto) 1.7 10 ^3/uL (0.4-5.4); Lymphocytes % (auto) 11.1 % (10.0-50.0); Mean Corpuscular Volume 80.9 fL (80.0-100.0); Monocytes % (auto) 5.6 % (0.0-12.0); Neutrophils # (auto) 12.3 10 ^3/uL (1.6-8.6); Neutrophils % (auto) 82.1 % (37.0-80.0); Nucleated Red Blood Cells % 0.2 %; Red Blood Cells 5.77 10^6/uL (4.5-5.90); Red Cell Distribution Width 15.9 % (11.8-14.3)
[2022-11-22 14:57] LABS: Hemoglobin 15.3 g/dL (13.5-17.5)
[2022-11-22 14:58] LABS: Mean Corpuscular Hemoglobin 25.2 pg (28.0-32.0)
[2022-11-22 14:59] LABS: Mean Corpuscular Hgb Conc. 30.4 g/dL (32.0-36.0)
[2022-11-22] MEDS ORDERED: HYDROmorphone HCL 2 MG/ML VL/or syr IV ONE ×2 (15:00→17:30)
[2022-11-22] MEDS ORDERED: IOHEXOL 300 MG/ML 100ML BOTTLE IJ ONE (15:03)
[2022-11-22] MEDS ORDERED: metroNIDAZOLE 500MG/100ML 100 ML IV ONE (16:00)
[2022-11-22] MEDS ORDERED: DOCUSATE SOD 100 MG CAP PO PRN (17:30)
[2022-11-22] MEDS: SODIUM CHLORIDE 0.9% 1,000 ML IV SCH ×2 (17:30→20:39)
[2022-11-22] MEDS ORDERED: SODIUM CHLORIDE 0.9% 1,000 ML IV ONE (17:45)
[2022-11-22 18:49] LABS: Alanine Aminotransferase 38 U/L (7-40); Albumin 4.8 g/dL (3.2-4.8); Alkaline Phosphatase 55 U/L (46-116); Anion Gap 10 (5-15); Aspartate Aminotransferase 56 U/L (13-40); BUN/Creatinine Ratio 5.3 (10.0-20.0); Bilirubin, Total 1.4 mg/dL (0.2-1.0); Blood Urea Nitrogen 6 mg/dL (9-23); Calcium 9.5 mg/dL (8.7-10.4); Carbon Dioxide 23 mmol/L (20-30); Chloride 101 mmol/L (98-107); Glucose 123 mg/dL (74-106); Lipase 569 U/L (12-53); Potassium 4.6 mmol/L (3.5-5.1); Sodium 134 mmol/L (136-145)
[2022-11-22 18:50] LABS: Total Protein < 2.0 g/dL (5.7-8.2)
[2022-11-22 19:20] LABS: Blood Alcohol < 3.0 mg/dL (<10); LDL Cholesterol 34 mg/dL (< 100)
[2022-11-22 19:21] LABS: Cholesterol 205 mg/dL (< 200)
[2022-11-22 19:25] LABS: HDL Cholesterol 20 mg/dL (40-59)
[2022-11-22 20:16] LABS: Triglycerides 1452 mg/dL (< 150)
[2022-11-22] MEDS: HYDROmorphone HCL 2 MG/ML VL/or syr IV PRN ×2 (20:28→23:37)
[2022-11-22] MEDS: PIPERACILLIN-TAZOB 3.375GM 100 ML IV SCH (20:31)
[2022-11-23] VITALS (7 sets, daily range): BP systolic 137–158; BP diastolic 86–100; PULSE 65–77; RESP 16–20; TEMP 97.5–98.1; O2SAT 95–98
[2022-11-23] MEDS: PIPERACILLIN-TAZOB 3.375GM 100 ML IV SCH ×4 (02:51→20:48)
[2022-11-23] MEDS: HYDROmorphone HCL 2 MG/ML VL/or syr IV PRN ×6 (02:58→23:04)
[2022-11-23 06:10] LABS: Basophils # (auto) 0 10 ^3/uL (0-0.2); Basophils % (auto) 0.3 % (0.0-2.0); Eosinophils # (auto) 0 10 ^3/uL (0-0.8); Eosinophils % (auto) 0.2 % (0.0-7.0); Hematocrit 45.8 % (41.0-53.0); Hemoglobin 15.7 g/dL (13.5-17.5); Lymphocytes # (auto) 1.1 10 ^3/uL (0.4-5.4); Lymphocytes % (auto) 8.8 % (10.0-50.0); Mean Corpuscular Hemoglobin 27.7 pg (28.0-32.0); Mean Corpuscular Hgb Conc. 34.3 g/dL (32.0-36.0); Mean Corpuscular Volume 80.8 fL (80.0-100.0); Monocytes # (auto) 0.7 10 ^3/uL (0-1.3); Monocytes % (auto) 5.8 % (0.0-12.0); Neutrophils # (auto) 10.2 10 ^3/uL (1.6-8.6); Neutrophils % (auto) 84.9 % (37.0-80.0); Nucleated Red Blood Cells % 0.4 %; Red Blood Cells 5.67 10^6/uL (4.5-5.90); Red Cell Distribution Width 14.4 % (11.8-14.3); White Blood Cell 12.1 10^3/uL (4.4-10.8)
[2022-11-23 06:20] LABS: % Iron Saturation 7.6 % (20-55)
[2022-11-23 06:27] LABS: Alanine Aminotransferase 27 U/L (7-40); Albumin 4.5 g/dL (3.2-4.8); Alkaline Phosphatase 57 U/L (46-116); Anion Gap 10 (5-15); Aspartate Aminotransferase 17 U/L (13-40); BUN/Creatinine Ratio 6.4 (10.0-20.0); Blood Urea Nitrogen 6 mg/dL (9-23); Calcium 9.6 mg/dL (8.5-10.1); Carbon Dioxide 27 mmol/L (20-30); Chloride 98 mmol/L (98-107); Glucose 117 mg/dL (74-106); Potassium 3.8 mmol/L (3.5-5.1); Sodium 135 mmol/L (136-145)
[2022-11-23 06:28] LABS: Bilirubin, Total 2.5 mg/dL (0.2-1.0); Total Protein 6.8 g/dL (5.7-8.2)
[2022-11-23 07:03] LABS: Lipase 244 U/L (12-53)
[2022-11-23] MEDS: ONDANSETRON HCL 4 MG/2 ML VIAL IV PRN (09:47)
[2022-11-23] MEDS: PANTOPRAZOLE 40 MG/10 ML VIAL INJ IV SCH (10:09)
[2022-11-23] MEDS: SODIUM CHLORIDE 0.9% 1,000 ML IV SCH ×2 (15:17→18:30)
[2022-11-23] MEDS: hydrALAZINE HCL 20 MG/ML VL IV PRN ×2 (18:24→23:10)
[2022-11-23] MEDS ORDERED: LISI40TA16 PO (19:11)
[2022-11-23] MEDS ORDERED: HYDR25TA4 PO (19:11)
[2022-11-23] MEDS: KETOROLAC TROMETH 30 MG/ML 1ML VIAL IV PRN (20:34)
[2022-11-24] VITALS (8 sets, daily range): BP systolic 140–165; BP diastolic 94–117; PULSE 70–91; RESP 16–21; TEMP 97.6–98.7; O2SAT 95–97
[2022-11-24] MEDS: HYDROmorphone HCL 2 MG/ML VL/or syr IV PRN ×4 (02:23→23:00)
[2022-11-24] MEDS: PIPERACILLIN-TAZOB 3.375GM 100 ML IV SCH ×4 (05:04→20:54)
[2022-11-24] MEDS: ONDANSETRON HCL 4 MG/2 ML VIAL IV PRN (05:19)
[2022-11-24] MEDS: KETOROLAC TROMETH 30 MG/ML 1ML VIAL IV PRN (05:22)
[2022-11-24 06:40] LABS: Basophils # (auto) 0 10 ^3/uL (0-0.2); Basophils % (auto) 0.4 % (0.0-2.0); Eosinophils # (auto) 0.1 10 ^3/uL (0-0.8); Eosinophils % (auto) 1.4 % (0.0-7.0); Hematocrit 45.2 % (41.0-53.0); Hemoglobin 15.3 g/dL (13.5-17.5); Lymphocytes # (auto) 1.3 10 ^3/uL (0.4-5.4); Lymphocytes % (auto) 17.7 % (10.0-50.0); Mean Corpuscular Hemoglobin 27.3 pg (28.0-32.0); Mean Corpuscular Hgb Conc. 33.8 g/dL (32.0-36.0); Mean Corpuscular Volume 80.8 fL (80.0-100.0); Monocytes # (auto) 0.6 10 ^3/uL (0-1.3); Monocytes % (auto) 7.8 % (0.0-12.0); Neutrophils # (auto) 5.2 10 ^3/uL (1.6-8.6); Neutrophils % (auto) 72.7 % (37.0-80.0); Nucleated Red Blood Cells % 0.2 %; Red Cell Distribution Width 14.3 % (11.8-14.3); White Blood Cell 7.2 10^3/uL (4.4-10.8)
[2022-11-24 07:03] LABS: Alanine Aminotransferase 21 U/L (7-40); Albumin 4.4 g/dL (3.2-4.8); Alkaline Phosphatase 54 U/L (46-116); Anion Gap 10 (5-15); Aspartate Aminotransferase 13 U/L (13-40); BUN/Creatinine Ratio 8.9 (10.0-20.0); Bilirubin, Total 2.7 mg/dL (0.2-1.0); Blood Urea Nitrogen 8 mg/dL (9-23); Calcium 9.5 mg/dL (8.5-10.1); Carbon Dioxide 27 mmol/L (20-30); Chloride 101 mmol/L (98-107); Cholesterol 162 mg/dL (< 200); Glucose 92 mg/dL (74-106); HDL Cholesterol 23 mg/dL (40-59); Potassium 3.1 mmol/L (3.5-5.1); Sodium 138 mmol/L (136-145); Total Protein 7.1 g/dL (5.7-8.2); Triglycerides 474 mg/dL (< 150)
[2022-11-24 07:34] LABS: Lipase 76 U/L (12-53)
[2022-11-24 07:35] LABS: Magnesium 2.1 mg/dL (1.6-2.6)
[2022-11-24] MEDS: PANTOPRAZOLE 40 MG/10 ML VIAL INJ IV SCH (09:16)
[2022-11-24] MEDS: SODIUM CHLORIDE 0.9% 1,000 ML IV SCH ×2 (09:17→12:34)
[2022-11-24] MEDS ORDERED: POTASSIUM CHL 20 Meq TABLET PO ONE (09:30)
[2022-11-24] MEDS ORDERED: METOPROLOL SUCCINATE XL 50 MG TAB PO ONE (11:00)
[2022-11-24] MEDS ORDERED: LISINOPRIL 20 MG TAB PO ONE (11:00)
[2022-11-24] MEDS: hydrALAZINE HCL 20 MG/ML VL IV PRN ×2 (15:12→21:14)
[2022-11-25] VITALS (7 sets, daily range): BP systolic 137–165; BP diastolic 86–120; PULSE 56–97; RESP 18–20; TEMP 97.3–98; O2SAT 96–98
[2022-11-25] MEDS ORDERED: cloNIDine HCL 0.1 MG TAB PO ONE (00:45)
[2022-11-25] MEDS ORDERED: ROSU1TAB14 PO (01:02)
[2022-11-25] MEDS: PIPERACILLIN-TAZOB 3.375GM 100 ML IV SCH ×4 (03:11→21:38)
[2022-11-25] MEDS: SODIUM CHLORIDE 0.9% 1,000 ML IV SCH ×2 (03:19→20:20)
[2022-11-25 04:44] LABS: Basophils # (auto) 0 10 ^3/uL (0-0.2); Basophils % (auto) 0.7 % (0.0-2.0); Eosinophils # (auto) 0.2 10 ^3/uL (0-0.8); Eosinophils % (auto) 3.3 % (0.0-7.0); Hematocrit 44.7 % (41.0-53.0); Hemoglobin 15.2 g/dL (13.5-17.5); Lymphocytes # (auto) 1.4 10 ^3/uL (0.4-5.4); Lymphocytes % (auto) 21.8 % (10.0-50.0); Mean Corpuscular Hemoglobin 27.4 pg (28.0-32.0); Mean Corpuscular Volume 80.7 fL (80.0-100.0); Monocytes # (auto) 0.6 10 ^3/uL (0-1.3); Monocytes % (auto) 9.4 % (0.0-12.0); Neutrophils # (auto) 4.1 10 ^3/uL (1.6-8.6); Neutrophils % (auto) 64.8 % (37.0-80.0); Nucleated Red Blood Cells % 0.1 %; Red Blood Cells 5.54 10^6/uL (4.5-5.90); Red Cell Distribution Width 14.4 % (11.8-14.3); White Blood Cell 6.4 10^3/uL (4.4-10.8)
[2022-11-25 05:02] LABS: Alanine Aminotransferase 27 U/L (7-40); Albumin 4.3 g/dL (3.2-4.8); Alkaline Phosphatase 50 U/L (46-116); Anion Gap 8 (5-15); Aspartate Aminotransferase 17 U/L (13-40); BUN/Creatinine Ratio 8.3 (10.0-20.0); Bilirubin, Total 2.3 mg/dL (0.2-1.0); Blood Urea Nitrogen 8 mg/dL (9-23); Calcium 9.5 mg/dL (8.5-10.1); Carbon Dioxide 27 mmol/L (20-30); Chloride 103 mmol/L (98-107); Glucose 103 mg/dL (74-106); Potassium 3.3 mmol/L (3.5-5.1); Sodium 138 mmol/L (136-145); Total Protein 6.9 g/dL (5.7-8.2)
[2022-11-25] MEDS: HYDROmorphone HCL 2 MG/ML VL/or syr IV PRN ×3 (06:45→21:39)
[2022-11-25] MEDS: PANTOPRAZOLE 40 MG/10 ML VIAL INJ IV SCH (08:40)
[2022-11-25] MEDS: LISINOPRIL 20 MG TAB PO SCH (08:42)
[2022-11-25] MEDS ORDERED: POTASSIUM CHL 20 Meq TABLET PO ONE (09:15)
[2022-11-25] MEDS ORDERED: METOPROLOL SUCCINATE XL 50 MG TAB PO SCH (10:00)
[2022-11-25] MEDS ORDERED: METOPROLOL SUCCINATE XL 50 MG TAB PO ONE (11:00)
[2022-11-25] MEDS: hydrALAZINE HCL 25 MG TAB PO SCH ×2 (14:40→21:38)
[2022-11-26] VITALS (7 sets, daily range): BP systolic 142–163; BP diastolic 93–103; PULSE 61–81; RESP 17–20; TEMP 97.3–98.2; O2SAT 95–98
[2022-11-26] MEDS: PIPERACILLIN-TAZOB 3.375GM 100 ML IV SCH ×2 (04:47→09:15)
[2022-11-26] MEDS: HYDROmorphone HCL 2 MG/ML VL/or syr IV PRN ×5 (04:48→22:46)
[2022-11-26] MEDS: hydrALAZINE HCL 25 MG TAB PO SCH ×3 (04:51→22:45)
[2022-11-26 05:59] LABS: Basophils # (auto) 0 10 ^3/uL (0-0.2); Basophils % (auto) 0.5 % (0.0-2.0); Eosinophils # (auto) 0.2 10 ^3/uL (0-0.8); Eosinophils % (auto) 3.4 % (0.0-7.0); Hematocrit 45.3 % (41.0-53.0); Hemoglobin 15.3 g/dL (13.5-17.5); Lymphocytes # (auto) 1.5 10 ^3/uL (0.4-5.4); Lymphocytes % (auto) 24.8 % (10.0-50.0); Mean Corpuscular Hemoglobin 27.2 pg (28.0-32.0); Mean Corpuscular Hgb Conc. 33.8 g/dL (32.0-36.0); Mean Corpuscular Volume 80.7 fL (80.0-100.0); Monocytes # (auto) 0.5 10 ^3/uL (0-1.3); Monocytes % (auto) 8.4 % (0.0-12.0); Neutrophils # (auto) 3.9 10 ^3/uL (1.6-8.6); Neutrophils % (auto) 62.9 % (37.0-80.0); Nucleated Red Blood Cells % 0.2 %; Red Blood Cells 5.62 10^6/uL (4.5-5.90); Red Cell Distribution Width 14.8 % (11.8-14.3); White Blood Cell 6.1 10^3/uL (4.4-10.8)
[2022-11-26 06:16] LABS: Alanine Aminotransferase 43 U/L (7-40); Albumin 4.1 g/dL (3.2-4.8); Alkaline Phosphatase 54 U/L (46-116); Aspartate Aminotransferase 24 U/L (13-40); BUN/Creatinine Ratio 6.6 (10.0-20.0); Blood Urea Nitrogen 7 mg/dL (9-23); Calcium 9.3 mg/dL (8.7-10.4); Chloride 104 mmol/L (98-107); Glucose 105 mg/dL (74-106); Lipase 82 U/L (12-53); Potassium 3.4 mmol/L (3.5-5.1); Sodium 137 mmol/L (136-145)
[2022-11-26 06:17] LABS: Bilirubin, Total 1.3 mg/dL (0.2-1.0); Total Protein 6.8 g/dL (5.7-8.2)
[2022-11-26 07:04] LABS: Anion Gap 9 (5-15); Carbon Dioxide 24 mmol/L (20-30)
[2022-11-26] MEDS: PANTOPRAZOLE 40 MG/10 ML VIAL INJ IV SCH (09:11)
[2022-11-26] MEDS: LISINOPRIL 20 MG TAB PO SCH (09:22)
[2022-11-26] MEDS ORDERED: METOPROLOL SUCCINATE XL 50 MG TAB PO SCH (10:00)
[2022-11-26] MEDS ORDERED: HCTZ 25 MG TAB PO ONE (10:15)
[2022-11-26] MEDS ORDERED: amLODIPine BESYLATE 5 MG TAB PO ONE (10:15)
[2022-11-26] MEDS ORDERED: POTASSIUM CHL 20 Meq TABLET PO ONE (11:00)
[2022-11-26] MEDS: hydrALAZINE HCL 20 MG/ML VL IV PRN (17:08)
[2022-11-26] MEDS: METOPROLOL SUCCINATE XL 50 MG TAB PO SCH (22:45)
[2022-11-27 05:00] VITALS: BP 127/83; PULSE 74; RESP 17; TEMP 98.1; O2SAT 98
[2022-11-27] MEDS: hydrALAZINE HCL 25 MG TAB PO SCH ×2 (05:52→14:00)
[2022-11-27] MEDS: HYDROmorphone HCL 2 MG/ML VL/or syr IV PRN ×2 (05:52→11:48)
[2022-11-27 06:38] LABS: Alanine Aminotransferase 40 U/L (7-40); Albumin 4.4 g/dL (3.2-4.8); Alkaline Phosphatase 55 U/L (46-116); Anion Gap 8 (5-15); Aspartate Aminotransferase 23 U/L (13-40); BUN/Creatinine Ratio 7.6 (10.0-20.0); Blood Urea Nitrogen 8 mg/dL (9-23); Calcium 9.7 mg/dL (8.7-10.4); Carbon Dioxide 27 mmol/L (20-30); Chloride 102 mmol/L (98-107); Glucose 98 mg/dL (74-106); Potassium 3.7 mmol/L (3.5-5.1); Sodium 137 mmol/L (136-145)
[2022-11-27 06:39] LABS: Bilirubin, Total 1.5 mg/dL (0.2-1.0); Total Protein 7.1 g/dL (5.7-8.2)
[2022-11-27 08:00] VITALS: PULSE 68; PULSE 78; RESP 17; O2SAT 98
[2022-11-27] MEDS: LISINOPRIL 20 MG TAB PO SCH (09:15)
[2022-11-27] MEDS: PANTOPRAZOLE 40 MG/10 ML VIAL INJ IV SCH (09:17)
[2022-11-27] MEDS: METOPROLOL SUCCINATE XL 50 MG TAB PO SCH (09:17)
[2022-11-27] MEDS ORDERED: HCTZ 25 MG TAB PO SCH (10:00)
[2022-11-27] MEDS ORDERED: amLODIPine BESYLATE 5 MG TAB PO SCH (10:00)
[2022-11-27 11:48] VITALS: BP 144/91; PULSE 79; RESP 18
[2022-11-27] MEDS ORDERED: AMLO1TAB23 PO (16:19)
== END 2022-11-27 18:30 | disposition home or self-care (01) | DRG 282 ==
LOC: ER 12:25 → TELE 17:42 → TELE-CENTR 18:45
PROVIDERS: ADMIT Nurse Practitioner Family; ATTEND Internal Medicine Geriatric Medicine
DX: K85.90 Acute pancreatitis without necrosis or infection, unspecified (principal); R16.0 Hepatomegaly, not elsewhere classified; K76.0 Fatty (change of) liver, not elsewhere classified; E87.1 Hypo-osmolality and hyponatremia; K80.20 Calculus of gallbladder without cholecystitis without obstruction; E66.01 Morbid (severe) obesity due to excess calories; E78.00 Pure hypercholesterolemia, unspecified; E78.1 Pure hyperglyceridemia; F10.20 Alcohol dependence, uncomplicated; I10 Essential (primary) hypertension; K57.30 Diverticulosis of large intestine without perforation or abscess without bleeding; E78.2 Mixed hyperlipidemia; Z68.35 Body mass index [BMI] 35.0-35.9, adult; Z79.899 Other long term (current) drug therapy; Z82.49 Family history of ischemic heart disease and other diseases of the circulatory system; Z83.3 Family history of diabetes mellitus; Z90.49 Acquired absence of other specified parts of digestive tract
CPT/HCPCS: 36415; 71045; 71250; 74177; 74181; 76705; 80053; 80061; 80320; 81001; 82728; 83540; 83550; 83605; 83690; 83735; 85025; 87040; 96360; 96365; 96375; C9113; G0378; J1885; J2405; J2543; J3490

== ENCOUNTER 2024-02-07 12:52 | Emergency (ER) | payer MEDICAID ==
[~2024-02-07] VITALS: Ht 188 cm; Wt 118.2 kg
[~2024-02-07 12:52] MED LIST changes: +AMLO1TAB23 PO; -ATOR-47 PO; -HYDR-4297 PO; +HYDR25TA4 PO; +HYDR50TA47 PO; -LISI20TA56 PO; +LISI40TA16 PO; -MAGN400T40 PO; +ROSU20TA56 PO
--- NOTE | 2024-02-07 13:11 | ED.PDOC ---
HPI Comments A 38 year old male presents to the ED with a chief complaint of palpitations onset today. Patient states he has been experiencing cough, congestion for the past 4 days and woke up today experiencing shortness of breath and palpitations. Patient has a past medical history of HLD, HTN, SVT and denies nausea, vomiting, diarrhea, blurry vision, headache. No other symptoms or modifying factors present at this time. Chief Complaint: Palpitations Time Seen by MD: 13:08 Primary Care Provider: UNKNOWN Reviewed Notes: Medications, Allergies Allergies: Coded Allergies: NO KNOWN ALLERGIES (Unverified , 08/25/10) Home Meds Active Scripts Amlodipine Besylate (Amlodipine Besylate) 10 Mg Tab, 1 TAB PO DAILY, #30 TAB 5 Refills Prov:BA FINK MD 11/27/22 Guaifenesin (Guaifenesin) 100 Mg/5 Ml Alesha, 200 MG PO Q4HP PRN, #120 ML Prov:NAILA GASTON MD 08/31/19 Famotidine (PEPCID TABLET) 20 Mg Tb, 1 TAB PO BID, #60 TAB Prov:NAILA GASTON MD 08/31/19 Dexamethasone (Decadron) 4 Mg Tb, 4 TAB PO DAILY, #8 TAB Prov:NAILA GASTON MD 08/31/19 Azithromycin (Azithromycin) 500 Mg Tab, 1 TAB PO DAILY, #5 TAB Prov:NAILA GASTON MD 08/31/19 Albuterol Sulfate (Albuterol Sulfate Hfa) 108 Mcg/Act Aer, 108 MCG IN TID, #1 AER Prov:NAILA GASTON MD 08/31/19 Reported Medications Rosuvastatin Calcium (Rosuvastatin Calcium) 20 Mg Tab, 1 TAB PO 11/25/22 Hydrochlorothiazide (Hydrochlorothiazide) 25 Mg Tab, 25 MG PO DAILY for 30 Days, MG 11/23/22 Lisinopril (Lisinopril) 40 Mg Tab, 40 MG PO DAILY for 30 Days, MG 11/23/22 Metoprolol Succinate (Metoprolol Succinate Er) 200 Mg Tab, 200 MG PO DAILY, TAB 08/29/19 Hydralazine Hcl (Hydralazine Hcl) 50 Mg Tab, 100 MG PO TID for 30 Days, MG 04/10/19 Fenofibrate (Fenofibrate) 160 Mg Tab, 160 MG PO DAILY, TAB 09/08/17 Information Source: Patient Mode of Arrival: Ambulatory Severity: Moderate Timing: Hours Duration: Since onset Prehospital treatment: None Cardiac Risk Factors: Hyperlipidemia, HTN Modifying Factors: Coughing Associated Signs and Symptoms: SOB, Palpitations Past Medical History PAST MEDICAL HISTORY: High Lipids, HTN Surgical History: Appendectomy, Cholecystectomy Family History Family History: Reviewed,noncontributory to illness, Family hx of DM, Family hx of HTN Social History Smoker: Other Alcohol: Occasionally Drugs: Marijuana Lives In: Home Constitutional: denies: chills, diaphoresis, fatigue, fever, malaise, sweats, weakness, others EENTM: reports: nose congestion; denies: blurred vision, double vision, ear bleeding, ear discharge, ear drainage, ear pain, ear ringing, eye pain, eye redness, hearing loss, mouth pain, mouth swelling, nasal discharge, nose bleeding, nose pain, photophobia, tearing, throat pain, throat swelling, voice changes, others Respiratory: reports: cough, shortness of breath; denies: hemoptysis, orthopnea, SOB at rest, SOB with excertion, stridor, wheezing, others Cardiovascular: reports: palpitations; denies: chest pain, dizzy spells, diaphoresis, Dyspnea on exertion, edema, irregular heart beat, left arm pain, lightheadedness, PND, syncope, others Gastrointestinal: denies: abdomen distended, abdominal pain, blood streaked bowels, constipated, diarrhea, dysphagia, difficulty swallowing, hematemesis, melena, nausea, poor appetite, poor fluid intake, rectal bleeding, rectal pain, vomiting, others Genitourinary: denies: burning, dysuria, flank pain, frequency, hematuria, incontinence, penile discharge, penile sore, pain, testicle pain, testicle swelling, urgency, others Neurological: denies: dizziness, fainting, headache, left sided numbness, left sided weakness, numbness, paresthesia, pre-existing deficit, right sided numbness, right sided weakness, seizure, speech problems, tingling, tremors, weakness, others Musculoskeletal: denies: back pain, gout, joint pain, joint swelling, muscle pain, muscle stiffness, neck pain, others Integumetry: denies: bruises, change in color, change in hair/nails, dryness, laceration, lesions, lumps, rash, wounds, others Allergic/Immunocompromised: denies: Difficulty Healing, Frequent Infections, Hives, Itching, others Hematologic/Lymphatic: denies: anemia, blood clots, easy bleeding, easy bruising, swollen glands, others Endocrine: denies: excessive hunger, excessive sweating, excessive thirst, excessive urination, flushing, intolerance to cold, intolerance to heat, unexplained weight gain, unexplained weight loss, others Psychiatric: denies: anxiety, bipolar disorder, depression, hopeless, panic disorder, schizophrenia, sleepless, suicidal, others All Other Systems: Reviewed and Negative Physical Exam General Appearance: No Apparent Distress, Normal HEENT: Normal ENT Inspection, Pharynx Normal, TMs Normal Neck: Full Range of Motion, Non-Tender, Normal, Normal Inspection Respiratory: Chest Non-Tender, Lungs Clear, No Accessory Muscle Use, No Respiratory Distress, Normal Breath Sounds Cardiovascular: No Edema, No JVD, No Murmur, No Gallop, Normal Peripheral Pulses, Regular Rate/Rhythm Breast Exam: Deferred Gastrointestinal: No Organomegaly, Non Tender, No Pulsatile Mass, Normal Bowel Sounds, Soft Genitalia: Deferred Pelvic: Deferred Rectal: Deferred Extremities: No calf tenderness, Normal capillary refill, Normal inspection, Normal range of motion, Non-tender, No pedal edema Musculoskeletal : Apperance: Normal Neurologic: Alert, 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 Was a procedure done?: No CP Differential Dx Differential Diagnosis: Anxiety / Panic Attack, Electrolyte Disorder, MAT, PAC's, PVC's, V-Tach Differential Diagnosis: HTN Essential, HTN Accelerated, HTN Encephalopathy Differential Diagnosis: Costochondritis, Gastritis, Myocardial Infarction, Pericarditis X-Ray, Labs, Meds, VS Vital Signs Date Time Temp Pulse Resp B/P (MAP) Pulse Ox O2 Delivery O2 Flow Rate FiO2 02/07/24 13:51 81 02/07/24 13:11 159 02/07/24 12:59 79 02/07/24 12:55 98.6 80 18 141/96 (111) 97 Lab Test 02/07/24 14:06 02/07/24 13:53 02/07/24 13:05 Range/Units Troponin I High Sensitivity 3 L 4 </=54 ng/L Influenza Type A Antigen Negative Negative Influenza Type B Antigen Negative Negative SARS-CoV-2 Antigen (Rapid) Negative NEGATIVE White Blood Count 5.3 4.4-10.8 10^3/uL Red Blood Count 5.27 4.5-5.90 10^6/uL Hemoglobin 14.5 13.5-17.5 g/dL Hematocrit 44.0 41.0-53.0 % Mean Corpuscular Volume 83.4 80.0-100.0 fL Mean Corpuscular Hemoglobin 27.5 L 28.0-32.0 pg Mean Corpuscular Hemoglobin Concent 33.0 32.0-36.0 g/dL Red Cell Distribution Width 13.8 11.8-14.3 % Platelet Count 181 140-450 10^3/uL Mean Platelet Volume 8.9 6.9-10.8 fL Neutrophils (%) (Auto) 70.1 37.0-80.0 % Lymphocytes (%) (Auto) 18.8 10.0-50.0 % Monocytes (%) (Auto) 7.9 0.0-12.0 % Eosinophils (%) (Auto) 2.5 0.0-7.0 % Basophils (%) (Auto) 0.7 0.0-2.0 % Neutrophils # (Auto) 3.7 1.6-8.6 10 ^3/uL Lymphocytes # (Auto) 1.0 0.4-5.4 10 ^3/uL Monocytes # (Auto) 0.4 0-1.3 10 ^3/uL Eosinophils # (Auto) 0.1 0-0.8 10 ^3/uL Basophils # (Auto) 0 0-0.2 10 ^3/uL Nucleated Red Blood Cells 0.2 % Sodium Level 140 136-145 mmol/L Potassium Level 3.7 3.5-5.1 mmol/L Chloride Level 105 98-107 mmol/L Carbon Dioxide Level 25 20-31 mmol/L Anion Gap 10 5-15 Blood Urea Nitrogen 9 9-23 mg/dL Creatinine 0.79 0.700-1.30 mg/dL Glomerular Filtration Rate Calc 117 >90 mL/min BUN/Creatinine Ratio 11.4 10.0-20.0 Serum Glucose 92 74-106 mg/dL Calcium Level 9.6 8.7-10.4 mg/dL Total Bilirubin 0.7 0.2-1.0 mg/dL Aspartate Amino Transferase (AST) 16 13-40 U/L Alanine Aminotransferase (ALT) 29 7-40 U/L Alkaline Phosphatase 68 46-116 U/L Total Protein 6.6 5.7-8.2 g/dL Albumin 4.5 3.2-4.8 g/dL [facility] [id number] [place] [address] Ph: [phone] DIAGNOSTIC IMAGING Diagnostic Imaging Report : [id number] Signed PATIENT: WILIAN SALAS ACCT: [id number] UNIT: [id number] : 1985 LOC: ER ROOM / BED: / AGE / SEX: 38 / M ADM STATUS: REG ER SERVICE 1327 ORDERING PHYSICIAN: GREG CARLOS MD PROCEDURE(s): CXR2 - CHEST TWO VIEWS ROUTINE REASON: PALPITATIONS ORDER NUMBER(s): [id number], ACCESSION NUMBER(s): [id number] CHEST RADIOGRAPH Indication: PALPITATIONS Technique: Frontal and lateral view of the chest was obtained Comparison: None FINDINGS: Lines and Tubes: None Lungs: Clear Pleura: No effusion. No pneumothorax. Cardiomediastinal contours: Unremarkable Bones: Unremarkable IMPRESSION: 1. No evidence of acute disease. ATED BY: KEV CHÁVEZ MD DICTATED DATE/TIME: 02/07/241337 SIGNED BY: KEV CHÁVEZ MD SIGNED DATE/TIME: 02/07/241337 CC: Time of 1ST Reevaluation: 13:38 Reevaluation 1ST: Unchanged Patient Education/Counseling: Diagnosis, Treatment, Prognosis Family Education/Counseling: No Family Present Additional Information The following tests were ordered, and results were reviewed by me: CBC, CMP, TROP, TROP, TROP, EKG, EKG, COVID, RAPID INFLUENZA A&B, RSV, XY CHEST 2 VIEWS I reviewed and agreed with the following test results read by other providers: XY CHEST 2 VIEWS I discussed treatment and results with medical personnel and patient Departure 1 Departure Time of Disposition: 16:09 (Patient presented with chest pain that was concerning for possible STEMI, ACS, PE, Pneumonia, Muscle Strain, COPD, Dissection. Data: 1. I ordered and reviewed the result of at least 3 labs including a CBC, BMP, and Troponin. 2. I independently interpreted the following tests: EKG which shows normal sinus rhythm and Chest X-ray which shows a benign chest.Risk:This patient presented with a high risk of morbidity due to further diagnostic testing or treatment and may suffer from an acute cardiac or respiratory disorder. After review of all the data patient is unlikely to have a pe , dissection, and is low risk for acs. Patient is stable at this time.Workup so far is benign and patient will be discharged with outpatient followup. ) Impression: Primary Impression: Acute chest pain Additional Impressions: Viral syndrome Cough Qualified Codes: R05.1 - Acute cough Disposition: HOME / SELF CARE / HOMELESS Condition: Stable Additional Instructions: You presented today with chest pain. Your workup today was benign including labs, troponin, EKG, chest x-ray. Your pain may be from musculoskeletal strain, acid reflux, anxiety, or many other factors. You likely have a virus. It is important to stay well rested and well hydrated. You can take Tylenol and Motrin as needed for pain and fever. For a sore throat you can drink warm tea with honey. You can take [id number] pseudoephedrine for nasal congestion. He should follow up with your regular doctor within 1 week to ensure you are doing better. If your symptoms worsen or you have any other concerns please return to the emergency room. Discharged With: Self Critical Care Note Critical Care Time?: No Stability Stability form required: No Heart Score Heart Score: Heart Score Response (Comments) Value History Slightly Suspicious 0 EKG Normal 0 Age <45 0 Risk Factors No known risk factors 0 Troponin Normal limit 0 Total 0 I personally scribed for GREG CARLOS MD ([email or web address]) on 02/07/24 at 13:11. Electronically submitted by Carmen Crowell ([email or web address]). I personally scribed for GREG CARLOS MD ([email or web address]) on 02/07/24 at 13:23. Electronically submitted by Carmen Crowell ([email or web address]). I personally scribed for GREG CARLOS MD ([facility]) on 02/07/24 at 13:42. Electronically submitted by Carmen Crowell ([email or web address]). I personally scribed for GREG CARLOS MD ([facility]) on 02/07/24 at 13:43. Electronically submitted by Carmen Crowell ([email or web address]). I personally scribed for GREG CARLOS MD ([facility]) on 02/07/24 at 15:22. Electronically submitted by Carmen Crowell ([email or web address]). GREG CARLOS MD Feb 07, 2024 13:11
--- NOTE | 2024-02-07 13:18 | ECG ---
[facility] Test Date: 2024-02-07 Test Time: 12:59:59 Pat Name: WILIAN SALAS Department: ED Room: Gender: M Chip Mucker: JUAN : 1985 Requested By: GREG CARLOS Order Number: [id number] Reading MD: Kannan Mckenzie Measurements Intervals [place] Rate: 79 P: 52 ME: 159 QRS: 102 QRSD: 101 T: -10 QT: 380 QTc: 436 Interpretive Statements Sinus rhythm Left posterior fascicular block Borderline T abnormalities, inferior leads Electronically Signed On 02-10-2024 13:04:47 PST by Kannan Mckenzie Please click the below link to view image of tracing.
--- NOTE | 2024-02-07 13:41 | DVH ---
CHEST RADIOGRAPH Indication: PALPITATIONS Technique: Frontal and lateral view of the chest was obtained Comparison: None FINDINGS: Lines and Tubes: None Lungs: Clear Pleura: No effusion. No pneumothorax. Cardiomediastinal contours: Unremarkable Bones: Unremarkable IMPRESSION: 1. No evidence of acute disease.
[2024-02-07 13:55] LABS: Alanine Aminotransferase 29 U/L (7-40); Albumin 4.5 g/dL (3.2-4.8); Alkaline Phosphatase 68 U/L (46-116); Anion Gap 10 (5-15); Aspartate Aminotransferase 16 U/L (13-40); BUN/Creatinine Ratio 11.4 (10.0-20.0); Calcium 9.6 mg/dL (8.7-10.4); Carbon Dioxide 25 mmol/L (20-31); Chloride 105 mmol/L (98-107); Glucose 92 mg/dL (74-106); Potassium 3.7 mmol/L (3.5-5.1); Sodium 140 mmol/L (136-145)
[2024-02-07 13:56] LABS: Bilirubin, Total 0.7 mg/dL (0.2-1.0); Total Protein 6.6 g/dL (5.7-8.2)
[2024-02-07 14:00] LABS: Blood Urea Nitrogen 9 mg/dL (9-23)
[2024-02-07 14:05] LABS: Basophils # (auto) 0 10 ^3/uL (0-0.2); Basophils % (auto) 0.7 % (0.0-2.0); Eosinophils # (auto) 0.1 10 ^3/uL (0-0.8); Eosinophils % (auto) 2.5 % (0.0-7.0); Hemoglobin 14.5 g/dL (13.5-17.5); Lymphocytes % (auto) 18.8 % (10.0-50.0); Mean Corpuscular Hemoglobin 27.5 pg (28.0-32.0); Mean Corpuscular Volume 83.4 fL (80.0-100.0); Monocytes # (auto) 0.4 10 ^3/uL (0-1.3); Monocytes % (auto) 7.9 % (0.0-12.0); Neutrophils # (auto) 3.7 10 ^3/uL (1.6-8.6); Neutrophils % (auto) 70.1 % (37.0-80.0); Nucleated Red Blood Cells % 0.2 %; Platelet Count (auto) 181 10^3/uL (140-450); Red Blood Cells 5.27 10^6/uL (4.5-5.90); Red Cell Distribution Width 13.8 % (11.8-14.3); White Blood Cell 5.3 10^3/uL (4.4-10.8)
[2024-02-07 15:08] LABS: Rapid Influenza A Negative (Negative); Rapid Influenza B Negative (Negative)
[2024-02-07 15:09] LABS: COVID19 ANTIGEN SOFIA FIA NEGATIVE (NEGATIVE)
[2024-02-07 16:41] VITALS: BP 146/90; PULSE 80; RESP 16; TEMP 98.4; O2SAT 98
--- NOTE | 2024-02-07 18:51 | ECG ---
[facility] Test Date: 2024-02-07 Test Time: 13:49:04 Pat Name: WILIAN SALAS Department: ED Room: Gender: M Casting Sorter: CAROL ANN : 1985 Requested By: GREG CARLOS Order Number: [id number] Reading MD: Kannan Mckenzie Measurements Intervals [place] Rate: 81 P: 26 CT: 142 QRS: 123 QRSD: 105 T: -17 QT: 373 QTc: 433 Interpretive Statements Sinus rhythm Atrial premature complex Consider right ventricular hypertrophy Nonspecific T abnormalities, inferior leads Baseline wander in lead(s) V5,V6 Electronically Signed On 02-10-2024 13:04:48 PST by Kannan Mckenzie Please click the below link to view image of tracing.
== END 2024-02-07 17:12 | disposition home or self-care (01) ==
LOC: ER 12:52
DX: B34.9 Viral infection, unspecified (principal); R07.9 Chest pain, unspecified; F17.200 Nicotine dependence, unspecified, uncomplicated; E78.5 Hyperlipidemia, unspecified; I10 Essential (primary) hypertension; Z79.52 Long term (current) use of systemic steroids; Z79.899 Other long term (current) drug therapy; Z90.49 Acquired absence of other specified parts of digestive tract; Z20.822 Contact with and (suspected) exposure to COVID-19
CPT/HCPCS: 36415; 71046; 80053; 84484; 85025; 87426; 87804; 93005